=== PATIENT | male | born 1970 | race American Indian/Alaskan Native ===

== ENCOUNTER 2019-04-02 09:22 | Inpatient (IN) | payer MEDICAID ==
[2019-04-02 09:47] VITALS: BMI 28.5
[2019-04-02 10:31] LABS: SQUAMOUS EPITHIAL < 1 /hpf (0-5); URINE BILIRUBIN NEGATIVE (NEGATIVE); URINE BLOOD NEGATIVE (NEGATIVE); URINE CLARITY Clear (Clear); URINE COLOR Yellow (YELLOW); URINE GLUCOSE (UA) NORMAL (Normal); URINE LEUKOCYTE ESTERASE NEG Leu/uL (Negative); URINE PROTEIN NEGATIVE (NEGATIVE); URINE UROBILINOGEN NORMAL mg/dL (0.2-1.0)
--- NOTE | 2019-04-02 10:53 | C.PDOC ---
History Of Present Illness 48 year old male presents to ED requesting detox from heroin. Patient states that he used 10-20 bags a day and last used this morning. Patient admits to drinking occasionally. Patient has a PMHx of NIDDM. Patient is not currently hazel ing his metformin. He denies homicidal ideation, suicidal ideation, and auditory hallucinations. Time Seen by Provider: 04/02/19 10:06 Chief Complaint (Nursing): Substance Abuse History Per: Patient History/Exam Limitations: no limitations Onset/Duration Of Symptoms: Other (requesting detox) Suicide/Self Injury Attempted (Context): None Modifying Factor(s): Other (heroin) Associated Symptoms: denies: Suicidal Thoughts, Suicidal Plan Past Medical History Reviewed: Historical Data, Nursing Documentation, Vital Signs Vital Signs: Last Vital Signs Temp 99.1 F 04/02/19 09:47 Pulse 106 H 04/02/19 09:47 Resp 18 04/02/19 09:47 BP 117/78 04/02/19 09:47 Pulse Ox 97 04/02/19 09:47 - Medical History PMH: Diabetes (NIDDM) Denies: Depression, Chronic Kidney Disease Surgical History: No Surg Hx - [facility] INJECT/INFUSE NEC (10/06/14) Family History: States: Unknown Family Hx - Social History Hx Tobacco Use: Yes Hx Alcohol Use: Yes Hx Substance Use: Yes Review Of Systems Constitutional: Negative for: Fever, Chills, Weakness Neurological: Negative for: Weakness, Numbness Psych: Negative for: Suicidal ideation, Other (auditory hallucinations, homicidal ideation) Physical Exam - Physical Exam Appears: Well, Non-toxic, No Acute Distress Skin: Normal Color, Warm, Dry Head: Atraumatic, Normacephalic Eye(s): bilateral: Normal Inspection Oral Mucosa: Moist Throat: Normal, No Erythema, No Exudate Neck: Normal ROM, Supple Chest: Symmetrical, No Deformity Cardiovascular: Rhythm Regular, No Murmur Respiratory: No Accessory Muscle Use, No Rales, No Rhonchi, No Wheezing Gastrointestinal/Abdominal: Soft, No Tenderness Extremity: Capillary Refill (<2 seconds) Extremity: Bilateral: Atraumatic, Normal Color And Temperature, Normal ROM Pulses: Left Radial: Normal, Right Radial: Normal Neurological/Psych: Oriented x3, Normal Speech, Normal Cognition ED Course And Treatment - Laboratory Results Result Diagrams: 04/02/19 10:59 04/02/19 10:59 Lab Results: Urine Color Yellow (YELLOW) 04/02/19 10:23 Urine Clarity Clear (Clear) 04/02/19 10:23 Urine pH 5.0 (5.0-8.0) 04/02/19 10:23 Ur Specific Mobile 1.023 (1.003-1.030) 04/02/19 10:23 Urine Protein Negative mg/dL (NEGATIVE) 04/02/19 10:23 Urine Glucose (UA) Normal mg/dL (Normal) 04/02/19 10:23 Urine Ketones Negative mg/dL (NEGATIVE) 04/02/19 10:23 Urine Blood Negative (NEGATIVE) 04/02/19 10:23 Urine Nitrate Negative (NEGATIVE) 04/02/19 10:23 Urine Bilirubin Negative (NEGATIVE) 04/02/19 10:23 Urine Urobilinogen Normal mg/dL (0.2-1.0) 04/02/19 10:23 Ur Leukocyte Esterase Neg Yaz/uL (Negative) 04/02/19 10:23 Urine WBC (Auto) 1 /hpf (0-5) 04/02/19 10:23 Urine RBC (Auto) < 1 /hpf (0-3) 04/02/19 10:23 Ur Squamous Epith Cells < 1 /hpf (0-5) 04/02/19 10:23 O2 Sat by Pulse Oximetry: 97 (in RA) Pulse Ox Interpretation: Normal Medical Decision Making Medical Decision Making: Impression: 48 year old male presents to ED requesting detox from heroin. Initial Plan: Labs ordered with drug screen and UA 1201 pt is medically cleared for detox admission. recommend pt starts on metformin again. Disposition Discussed With : Alex Red Doctor Will See Patient In The: Hospital - Disposition Disposition: HOSPITALIZED Disposition Time: 12:46 Condition: GOOD Forms: [facility] (Angolan) - Clinical Impression Clinical Impression: Opioid use disorder, severe, dependence - PA / PROPERTY COORDINATOR / Resident Statement MD/DO has reviewed & agrees with the documentation as recorded. (Debbie Waters) - Scribe Statement The provider has reviewed the documentation as recorded by the Scribe (Debbie Waters) All medical record entries made by the Scribe were at my direction and personally dictated by me. I have reviewed the chart and agree that the record accurately reflects my personal performance of the history, physical exam, medical decision making, and the department course for this patient. I have also personally directed, reviewed, and agree with the discharge instructions and disposition.
[2019-04-02 11:07] LABS: BASO # 0.1 K/uL (0.0-0.2); BASO % 0.9 % (0.0-2.0); EOS # 0.4 K/uL (0.0-0.7); EOS % 3.7 % (0.0-4.0); LYMPH # 1.8 K/uL (1.0-4.3); LYMPH % 18.5 % (20.0-40.0); MEAN CELL VOLUME 86.7 fL (80.0-94.0); MEAN CORPUSCULAR HEMOGLOBIN 29.6 pg (27.0-31.0); MEAN CORPUSCULAR HGB CONC 34.1 g/dL (33.0-37.0); MEAN PLATELET VOLUME 7.5 fL (7.2-11.7); MONO # 0.7 K/uL (0.0-0.8); MONO % 7.1 % (0.0-10.0); NEUT # 6.8 K/uL (1.8-7.0); NEUT % 69.8 % (50.0-75.0); RBC 4.72 Mil/uL (4.40-5.90); RED CELL DISTRIBUTION WIDTH 14.6 % (11.5-14.5); WHITE BLOOD COUNT 9.7 K/uL (4.8-10.8)
[2019-04-02 11:12] LABS: BARBITURATES, UR NEGATIVE (NEGATIVE); BENZODIAZEPINES, UR NEGATIVE (NEGATIVE); PHENCYCLIDINE, UR NEGATIVE (NEGATIVE)
[2019-04-02 11:17] LABS: ALB/GLOB RATIO 1.2 (1.0-2.1); ALBUMIN 4.2 g/dL (3.5-5.0); ALT/SGPT 11 U/L (21-72); AST/SGOT 19 U/L (17-59); BLOOD UREA NITROGEN 17 mg/dL (9-20); CALCIUM 9.2 mg/dl (8.6-10.4); GFR NON-AFRICAN AMERICAN > 60
[2019-04-02 11:36] LABS: OPIATES, UR POSITIVE (NEGATIVE)
--- NOTE | 2019-04-02 13:53 | PCM.BM ---
<Theresa Mcgregor - Last Filed: 04/02/19 13:52> Treatment Plan Problems - Problems identified on initial assessmt Defensive Coping Date Initiated: 04/02/19 Assessment reference: NA Status: Active Social Isolation Date Initiated: 04/02/19 Assessment reference: NA Status: Active Low Motivation to Change Date Initiated: 04/02/19 Assessment reference: NA Status: Active Treatment assets and liabiliti Patient Assests: adapts well, cooperative, ADL independent, negotiates basic needs Patient Liabilities: substance abuse - Milieu Protocol Maintain good personal hygiene: daily Encourage regular showers, daily Remind patient to perform daily oral care, daily Assist patient to perform ADL's Conduct patient checks and document Observation sheet: Q15 minutes Maintain personal safety: every shift Educate patient to report safety concerns to staff, every shift Monitor environment for contraband/sharps Medication safety: Monitor for expected outcome, potential side effects: every shift, Assess barriers to learning: every shift, Assess readiness for medication education: every shift <Alex Red - Last Filed: 04/02/19 14:14> - Diagnosis (1) Opioid use disorder, severe, dependence Status: Acute Interventions: 04/02/19 14:14 * Assess 7x/week regarding severity of withdrawal * Educate regarding risks, benefits, side effects and alternatives of medications * Use Motivational Interviewing for abstinence * Use CBT for relapse prevention * Medication management for withdrawal symptoms * Encourage medication assisted treatment *
--- NOTE | 2019-04-02 14:13 | PCM.PSYCH ---
Initial Psychiatric Evaluation - Initial Psychiatric Evaluation Type of Admission: Voluntary Legal Status: Capacity Chief Complaint (in patient's own words): "Starting to get sick" History of Present Illness and Precipitating Events: The pt was seen, chart reviewed, and case discussed. Pt is a 48 year old male , with 5 adult children, unemployed, and lives with his with psych hx of depression. He snorts 10-20 bags/day of heroin for since September 2018. His last use was this morning. He was previously clean for 11 years. However, he relapsed after his brother was killed in September 2018. He drinks 6 packs of beer and 2 pints of vodka daily. His last drink was last night 04/01/19. He smokes 10 cigarettes/day for the past 20 years. He smokes a blunt every 2 or 3 days. Currently COWS is 5 and slowly increasing per pt's report. CIWA is low too but he has a recent history of DTs and "bad withdrawals that I don;t even remember, myu told me" he says. He also uses cocaine daily. He feels very anxious, anhedonic, sad, and decreased appetite and sleep. He denies anhedonia and suicidal/homicidal ideation. Past psych hx: depression Fam psych hx: denies PMHx: T2DM, HLD Current meds: metformin Past Psychiatric History - Past Psychiatric History Previous Treatment History: Intensive Outpatient Pertinent Medical Hx (Current Medical&Sleep Prob, Allergies): Allergies Allergy/AdvReac Type Severity Reaction Status Date / Time Penicillins Allergy SHORTNESS Verified 04/02/19 09:46 OF BREATH RX: No Known Home Med 04/02/19 Review of Systems - Psychiatric Psychiatric: Abnormal Sleep Pattern, Anhedonia, Anxiety, Auditory Hallucinations, Depression, Difficulty Concentrating. absent: Hallucinations, Homicidal Ideation, Paranoia, Suicidal Ideation Mental Status Examination - Personal Presentation Personal Presentation: Looks older than stated age - Affect Affect: Constricted - Motor Activity Motor Activity: Calm - Reliability in Providing Information Reliability in Providing Information: Good - Speech Speech: Organized - Mood Mood: Depressed, Anxious - Formal Thought Process Formal Thought Process: No Impairment - Cognitive Functions Orientation: Person, Place, Situation, Time Sensorium: Alert Attention/Concentration: Attentive Estimate of Intelligence: Average Judgement: Intact, as evidence by: Insight regarding need for hospitalization Memory: Recent intact, as evidence by: Ability to recall events of the day, Remote intact, as evidenced by: Abilit to recall sig. life events - Risk Risk: Withdrawal, Diminished functioning - Strength & Assets Inventory Strength & Assets Inventory: Cooperative - Limitations Limitations: Other DSM 5 DX - DSM 5 DSM 5 Diagnosis: Opioid withdrawal Opioid use d/o - severe Alcohol use d/o - severe Alcohol withdrawal Cocaine use d/o - severe - Recommended/Plan of Treatment Treatment Recommendations and Plan of Treatment: Taper with methadone and librium when he is sicker remeron for depression and anxiety Gabapentin for augmentation if needed As needed medications All risks, benefits and alternatives of the meds discussed, and the pt agreed and understood. Attend groups and activities Supportive therapy and psychoeducation [place] for abstinence CBT for relapse prevention Encourage MAT Refer to rehab or IOP, and self-help groups Teach healthy lifestyle methods, i.e. diet, exercise, meditation Smoking cessation with [place] Nicotine patch if needed 34 min Projected ELOS: 4-5 days Prognosis: good w treatment - Smoking Cessation Smoking Cessation Initiated: Yes
[2019-04-02] MEDS ORDERED: Aluminum Hydroxide/Magnesium Hydroxide Susp (30 mL) PO PRN (14:55)
[2019-04-02] MEDS: Multiple Vitamins Tab PO SCH (16:32)
[2019-04-03] MEDS: Multiple Vitamins Tab PO SCH (10:09)
--- NOTE | 2019-04-03 12:16 | PCM.PYCHPN ---
Psychiatric Progress Note - Psychiatric Progress Note Patient seen today, length of contact: 18 min Patient Chief Complaint: "Not well" Problems Identified/Issues Discussed: The pt is seen, chart reviewed, case is discussed with staff. The pt is compliant with medications and reports no side-effects. He was not in significant wdw yesterday but he is sicker today - wants subutex Support given, psycho-education provided. After care discussed. Medication Change: Yes (detox starting, flexeril added ) Medical Record Reviewed: Yes Mental Status Examination - Cognitive Function Orientation: Person, Place, Situation, Time Memory: Intact Attention: WNL Concentration: Poor Association: WNL Fund of Knowledge: WNL - Mood Mood: Depressed, Anxious - Affect Affect: Constricted - Speech Speech: Appropriate - Formal Thought Process Formal Thought Process: No Impairment - Suicidal Ideation Suicidal Ideation: No - Homicidal Ideation Homicidal Ideation: No Goal/Treatment Plan - Goal/Treatment Plan Need for Continued Stay: Discharge may exacerbated symptoms, Severe functional impairment Progress Toward Problem(s) and Goals/Treatment Plan: Taper with methadone and librium when he is sicker remeron for depression and anxiety Gabapentin for augmentation if needed As needed medications All risks, benefits and alternatives of the meds discussed, and the pt agreed and understood. Attend groups and activities Supportive therapy and psychoeducation [place] for abstinence CBT for relapse prevention Encourage MAT Refer to rehab or IOP, and self-help groups Teach healthy lifestyle methods, i.e. diet, exercise, meditation Smoking cessation with [place] Nicotine patch if needed
[2019-04-03] MEDS ORDERED: Buprenorphine Hydrochloride 2 mg SL ONE ×2 (15:30→16:25)
[2019-04-04] MEDS: Multiple Vitamins Tab PO SCH (09:15)
[2019-04-04] MEDS: Buprenorphine Hydrochloride 2 mg SL SCH (09:17)
--- NOTE | 2019-04-05 01:49 | PCM.PYCHPN ---
Psychiatric Progress Note - Psychiatric Progress Note Patient seen today, length of contact: 15 min Patient Chief Complaint: "Not well" Problems Identified/Issues Discussed: The pt is seen, chart reviewed, case is discussed with staff. The pt is compliant with medications and reports no side-effects. He was not in significant wdw yesterday but he is sicker today - wants subutex Support given, psycho-education provided. After care discussed. Medication Change: Yes (detox starting, flexeril added ) Medical Record Reviewed: Yes Mental Status Examination - Cognitive Function Orientation: Person, Place, Situation, Time Memory: Intact Attention: WNL Concentration: Poor Association: WNL Fund of Knowledge: WNL - Mood Mood: Depressed, Anxious - Affect Affect: Constricted - Speech Speech: Appropriate - Formal Thought Process Formal Thought Process: No Impairment - Suicidal Ideation Suicidal Ideation: No - Homicidal Ideation Homicidal Ideation: No Goal/Treatment Plan - Goal/Treatment Plan Need for Continued Stay: Discharge may exacerbated symptoms, Severe functional impairment Progress Toward Problem(s) and Goals/Treatment Plan: Taper with methadone and librium when he is sicker remeron for depression and anxiety Gabapentin for augmentation if needed As needed medications All risks, benefits and alternatives of the meds discussed, and the pt agreed and understood. Attend groups and activities Supportive therapy and psychoeducation [place] for abstinence CBT for relapse prevention Encourage MAT Refer to rehab or IOP, and self-help groups Teach healthy lifestyle methods, i.e. diet, exercise, meditation Smoking cessation with [place] Nicotine patch if needed
[2019-04-05 09:56] VITALS: RESP 18
--- NOTE | 2019-04-05 10:05 | PCM.PYCHPN ---
Psychiatric Progress Note - Psychiatric Progress Note Patient seen today, length of contact: 15 min Patient Chief Complaint: "Not well" Problems Identified/Issues Discussed: The pt is seen, chart reviewed, case is discussed with staff. The pt is compliant with medications and reports no side-effects. He was not in significant wdw yesterday but he is sicker today - wants subutex Support given, psycho-education provided. After care discussed. Medication Change: Yes (detox starting, flexeril added ) Medical Record Reviewed: Yes Mental Status Examination - Cognitive Function Orientation: Person, Place, Situation, Time Memory: Intact Attention: WNL Concentration: Poor Association: WNL Fund of Knowledge: WNL - Mood Mood: Depressed, Anxious - Affect Affect: Constricted - Speech Speech: Appropriate - Formal Thought Process Formal Thought Process: No Impairment - Suicidal Ideation Suicidal Ideation: No - Homicidal Ideation Homicidal Ideation: No Goal/Treatment Plan - Goal/Treatment Plan Need for Continued Stay: Discharge may exacerbated symptoms, Severe functional impairment Progress Toward Problem(s) and Goals/Treatment Plan: Taper with methadone and librium when he is sicker remeron for depression and anxiety Gabapentin for augmentation if needed As needed medications All risks, benefits and alternatives of the meds discussed, and the pt agreed and understood. Attend groups and activities Supportive therapy and psychoeducation [place] for abstinence CBT for relapse prevention Encourage MAT Refer to rehab or IOP, and self-help groups Teach healthy lifestyle methods, i.e. diet, exercise, meditation Smoking cessation with [place] Nicotine patch if needed
[2019-04-05] MEDS: Buprenorphine Hydrochloride 2 mg SL SCH (10:14)
[2019-04-05] MEDS: Multiple Vitamins Tab PO SCH (10:14)
[2019-04-05 12:04] VITALS: O2SAT 97
[2019-04-05 16:10] VITALS: BP 102/65; PULSE 82; TEMP 97.6
[2019-04-06] MEDS ORDERED: Buprenorphine Hydrochloride 2 mg SL ONE (07:45)
--- NOTE | 2019-04-06 08:24 | PCM.PYCHDC ---
Mental Status Examination - Mental Status Examination Orientation: Person Discharge Summary - Discharge Note Consultations:: List each consultation separately and include: 1. Reason for request. 2. Findings. 3. Follow-up Summary of Hospital Course include:: 1. Description of specific treatment plan utilized for patients during their course of treatmen. 2. Summarize the time- course for resolution of acute symptoms and/or regressed behaviors. 3. Describe issues identified and worked on during hospitalization. 4. Describe medication utilized. 5. Describe medical problems identified and treated. 6. Reassessment of suicide risk Summary of Hospital Course: The pt was seen, chart reviewed, and case discussed. Pt is a 48 year old male , with 5 adult children, un employed, and lives with his with psych hx of depression. He snorts 10-20 bags/day of heroin for since September 2018. His last use was this morning. He was previously clean for 11 years. However, he relapsed after his brother was killed in September 2018. He drinks 6 packs of beer and 2 pints of vodka daily. His last drink was last night 04/01/19. He smokes 10 cigarettes/day for the past 20 years. He smokes a blunt every 2 or 3 days. Currently COWS is 5 and slowly increasing per pt's report. CIWA is low too but he has a recent history of DTs and "bad withdrawals that I don;t even rememb er, myu told me" he says. He also uses cocaine daily. He feels very anxious, anhedonic, sad, and decreased appetite and sleep. He denies anhedonia and suicidal/homicidal ideation. Past psych hx: depression Fam psych hx: denies PMHx: T2DM, HLD Current meds: metformin He went to [facility]. He was frequently irate and complaining. - Diagnosis (1) Opioid use disorder, severe, dependence Status: Acute - Final Diagnosis (DSM 5) Condition upon Discharge: GOOD Disposition: HOME/ ROUTINE Follow-up Treatment Plan: Taper with methadone and librium when he is sicker remeron for depression and anxiety Gabapentin for augmentation if needed As needed medications All risks, benefits and alternatives of the meds discussed, and the pt agreed and understood. Attend groups and activities Supportive therapy and psychoeducation [place] for abstinence CBT for relapse prevention Encourage MAT Refer to rehab or IOP, and self-help groups Teach healthy lifestyle methods, i.e. diet, exercise, meditation Smoking cessation with [place] Nicotine patch if needed
== END 2019-04-06 07:50 | disposition home or self-care (01) | DRG 745 ==
LOC: EDBD 09:22 → C.ER 09:22 → C.7D 12:45 → OBSVTOIN 04-03 16:20
PROVIDERS: ADMIT Psychiatry & Neurology Psychiatry; ATTEND Psychiatry & Neurology Psychiatry
PROC: GZ56ZZZ Individual Psychotherapy, Supportive (ICD-10-PCS; principal; 2019-04-03)
DX: F11.23 Opioid dependence with withdrawal (principal); E78.5 Hyperlipidemia, unspecified; F14.90 Cocaine use, unspecified, uncomplicated; F17.210 Nicotine dependence, cigarettes, uncomplicated; F41.9 Anxiety disorder, unspecified; F32.9 Major depressive disorder, single episode, unspecified; E11.9 Type 2 diabetes mellitus without complications; F10.230 Alcohol dependence with withdrawal, uncomplicated; Y90.9 Presence of alcohol in blood, level not specified